=== PATIENT | male | born 1960 | race American Indian/Alaskan Native ===

== ENCOUNTER 2020-01-06 07:08 | Emergency (ER) | payer MEDICAID ==
[2020-01-06] MEDS ORDERED: KETOROLAC 30 MG/1 ML INJ IM ONE (08:50)
[2020-01-06] MEDS ORDERED: dexAMETHasone 20 MG/5 ML VIAL IM ONE (08:50)
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
[2020-01-06 09:37] VITALS: BP 120/73
== END 2020-01-06 09:36 | disposition home or self-care (01) ==
LOC: ED 07:08
DX: G89.29 Other chronic pain (principal); M54.5 Low back pain; K21.9 Gastro-esophageal reflux disease without esophagitis; Z79.899 Other long term (current) drug therapy
CPT/HCPCS: 96372; 99281; J1100; J1885

== ENCOUNTER 2020-09-02 07:22 | Emergency (ER) | payer MEDICAID ==
[2020-09-02] MEDS ORDERED: KETOROLAC 30 MG/1 ML INJ IM ONE (11:09)
[2020-09-02] MEDS ORDERED: dexAMETHasone 20 MG/5 ML VIAL IM ONE (11:09)
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
[2020-09-02 11:45] VITALS: BP 122/68
== END 2020-09-02 12:08 | disposition home or self-care (01) ==
LOC: ED 07:22
DX: M54.6 Pain in thoracic spine (principal); K21.9 Gastro-esophageal reflux disease without esophagitis; Z79.899 Other long term (current) drug therapy
CPT/HCPCS: 96372; 99282; J1100; J1885